=== PATIENT | female | born 1970 | race Caucasian/White ===

== ENCOUNTER 2024-06-09 09:00 | Outpatient (OUT) | payer MEDICARE, SELFPAY ==
--- NOTE | 2024-06-09 09:02 | XR_ITS ---
The [address] [address] Patient Name: ZANA ARANDA MRN: [id number] date: 1970 Sex: F Assigned Patient Location: Current Patient Location: Accession/Order Number: [id number] Exam Date: 06/09/2024 10:22 Report Date: 06/09/2024 10:29 At the request of: JOSE JOHNSON MD Procedure: XR lumbar spine 2-3V LUMBAR SPINE - 2 views COMPARISON: MRI 02/07/2024 CLINICAL DATA: Back pain. Follow-up fusion AP and lateral standing views were obtained. There is osteopenia. 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 Patient is status post laminectomy and fusion with posterior rods and pedicle screws extending from L4 through S1. The hardware appears intact and in appropriate position. No developing fractures are noted. There is subtle retrolisthesis of L5 with respect to adjacent vertebra, also seen previously. There is slight disc space narrowing at L3-4, mild at the lumbosacral junction and moderate at L4-5. There is some endplate spurring. The SI joints show mild sclerosis. No paraspinal soft tissue abnormalities are seen. XR/XR lumbar spine 2-3V IMPRESSION: SCOLIOSIS WITH POSTOPERATIVE AND DEGENERATIVE CHANGES, DESCRIBED. Impression dictated by: Agueda Lopez M.D.06/09/2024 10:29 AM Dictation Location: [place] [address] Electronically authenticated by: [id number] Y Date: 06/09/2024 10:29
== END 2024-06-09 09:01 | disposition home or self-care (01) ==
LOC: EC 09:00
PROVIDERS: PCP Internal Medicine; Visit Provider Orthopaedic Surgery Orthopaedic Surgery of the Spine
DX: Z47.89 Encounter for other orthopedic aftercare (principal); M41.86 Other forms of scoliosis, lumbar region; M43.26 Fusion of spine, lumbar region
CPT/HCPCS: 72100